=== PATIENT | male | born 1980 | race Hispanic/Latino ===

== ENCOUNTER 2017-08-26 19:34 | Emergency (ER) | payer MEDICAID ==
[2017-08-26 19:38] VITALS: BMI 34.0
[2017-08-26 19:39] VITALS: RESP 17; TEMP 98.8; O2SAT 98
[2017-08-26] MEDS ORDERED: Sodium Chloride 0.9% 1,000 ML IV STA (20:54)
--- NOTE | 2017-08-26 21:13 | ED PDOC ---
HPI: Male Pain Chief Complaint (Provider): painful urination, right abdominal pain, dark urine History Per: Patient History/Exam Limitations: no limitations Onset/Duration Of Symptoms: Days (2) Current Symptoms Are (Timing): Still Present Pain Scale Rating Of: 8 Quality Of Discomfort: "Pain" Associated Symptoms: Chills (cold sweats), Diarrhea, Loss Of Appetite, Urinary Symptoms (dysuria, dark urine). denies: Nausea, Vomiting Alleviating Factors: OTC Meds (aspirin alleviated pain a bit) Additional History Per: Patient Additional Complaint(s): 36 year old male with history of nephrolithiasis presents with 2 day history of abdominal pain. One day history of dysuria and dark urine, cold sweats. 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 Has been taking Aspirin since with some relief of pain, now w/ upper abdominal pain due to this medication. Hx of one kidney stone, passed, 2 years ago. Recently moved to [place]. No PMD. <Gabino Mcdonald - Last Filed: 08/27/17 06:53> <Janee Gardner - Last Filed: 08/28/17 15:15> Chief Complaint (Nursing): Male Genitourinary Supervising Attending Note - Supervising Attending Note The Documented history was done by the: Physician Assistant Corporate Controller, Attending Physician The documented physical exam was done by the: Physician Assistant Corporate Controller, Attending Physician - Attestation: I have personally seen and examined this patient.: Yes I have fully participated in the care of the patient.: Yes I have reviewed all pertinent clinical information, including history, physical exam and plan: Yes <Janee Gardner - Last Filed: 08/28/17 15:15> Past Medical History Vital Signs: Last Vital Signs Temp 98.8 F 08/26/17 19:38 Pulse 101 H 08/26/17 19:38 Resp 17 08/26/17 19:38 BP 142/87 08/26/17 19:38 Pulse Ox 98 08/26/17 19:38 - Medical History PMH: Kidney Stones - Surgical History Surgical History: No Surg Hx - Family History Family History: States: Unknown Family Hx <Gabino Mcdonald - Last Filed: 08/27/17 06:53> Vital Signs: Last Vital Signs Temp 98.8 F 08/26/17 19:38 Pulse 86 08/26/17 23:45 Resp 17 08/26/17 19:38 BP 136/92 H 08/26/17 23:45 Pulse Ox 98 08/27/17 06:53 <Janee Gardner - Last Filed: 08/28/17 15:15> - Home Medications Home Medications: Ambulatory Orders Medication Instructions Recorded Ciprofloxacin [Cipro] 1 tab PO BID #20 tab 08/26/17 Tamsulosin [Flomax] 0.4 mg PO DAILY #14 cap 08/26/17 traMADol [Ultram] 50 mg PO TID #15 tab 08/26/17 - Allergies Allergies/Adverse Reactions: Allergies Allergy/AdvReac Type Severity Reaction Status Date / Time ketorolac [From Toradol] Allergy RASH Verified 08/26/17 22:04 Review of Systems Constitutional: Positive for: Chills, Sweats Eyes: Negative for: Vision Change ENT: Negative for: Nose Congestion Cardiovascular: Negative for: Chest Pain, Palpitations, Light Headedness Respiratory: Negative for: Cough, Shortness of Breath Gastrointestinal: Positive for: Abdominal Pain, Diarrhea. Negative for: Nausea , Vomiting Genitourinary Male: Positive for: Dysuria, Hematuria. Negative for: Incontinence, Penile Pain Neurological: Negative for: Altered Mental Status <Gabino Mcdonald - Last Filed: 08/27/17 06:53> Physical Exam - Reviewed Vital Signs Reviewed: Yes - Physical Exam Appears: Positive for: Uncomfortable Skin: Positive for: Normal Color, Warm, Dry Eye Exam: Positive for: Normal appearance Neck: Positive for: Normal, Painless ROM Cardiovascular/Chest: Positive for: Regular Rate, Rhythm, Chest Non Tender. Negative for: Edema, Murmur Respiratory: Positive for: Normal Breath Sounds. Negative for: Wheezing, Respiratory Distress Gastrointestinal/Abdominal: Positive for: Bowel Sounds, Soft, Tenderness (mild rlq tenderness). Negative for: Distended, Guarding Back: Negative for: L CVA Tenderness, R CVA Tenderness Extremity: Positive for: Normal ROM. 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 Rule out nephrolithiasis --CBC --CMP --UA --UCx --Toradol/Tylenol --IVF --GC/CT case d/w Dr. Gardner. Labs reviewed. No Leukocytosis. + RBC in urine, +Nitrates/Leukocytes CT scan ordered. Patient still having pain, tramadol ordered. 23:30 patient requesting to go home, declined CT scan. He is hemodynamically stable at this time. <Gabino Mcdonald - Last Filed: 08/27/17 06:53> - Laboratory Results Result Diagrams: 08/26/17 21:45 08/26/17 21:45 <Janee Gardner - Last Filed: 08/28/17 15:15> Disposition - Disposition Disposition Time: 00:00 <Gabino Mcdonald - Last Filed: 08/27/17 06:53> <Janee Gardner - Last Filed: 08/28/17 15:15> - Clinical Impression Clinical Impression: Renal colic, UTI (urinary tract infection) - Disposition Referrals: Norman Perez MD [Medical Doctor] - (FOLLOW UP WITH UROLOGY NEXT WEEK) Condition: STABLE Prescriptions: Ciprofloxacin [Cipro] 1 tab PO BID #20 tab Tamsulosin [Flomax] 0.4 mg PO DAILY #14 cap traMADol [Ultram] 50 mg PO TID #15 tab Instructions: Kidney Infection, Renal Colic (DC) Forms: [facility] ED School/Work Excuse
[2017-08-26 21:58] LABS: BASO % 0.3 % (0.0-2.0); EOS # 0.1 K/uL (0.0-0.7); EOS % 1.2 % (0.0-4.0); HEMOGLOBIN 13.5 g/dL (12.0-18.0); LYMPH % 32.5 % (20.0-40.0); MEAN CELL VOLUME 80.4 fl (80.0-94.0); MEAN CORPUSCULAR HEMOGLOBIN 26.4 pg (27.0-31.0); MEAN CORPUSCULAR HGB CONC 32.8 g/dL (33.0-37.0); MEAN PLATELET VOLUME 7.6 fl (7.2-11.7); MONO # 0.9 K/uL (0.0-0.8); MONO % 14.9 % (0.0-10.0); NEUT # 3.2 K/uL (1.8-7.0); NEUT % 51.1 % (50.0-75.0); NRBC % 0.1 % (0.0-0.0); RBC 5.11 Mil/uL (4.40-5.90); RED CELL DISTRIBUTION WIDTH 13.8 % (11.5-14.5); WHITE BLOOD COUNT 6.2 K/uL (4.8-10.8)
[2017-08-26 22:14] LABS: ALB/GLOB RATIO 1.3 (1.0-2.1); ALBUMIN 4.4 g/dL (3.5-5.0); ALT/SGPT 30 U/L (21-72); AST/SGOT 30 U/L (17-59); BLOOD UREA NITROGEN 14 mg/dl (9-20); CALCIUM 9.1 mg/dL (8.4-10.2); GFR AFRICAN-AMERICAN > 60; GFR NON-AFRICAN AMERICAN > 60
[2017-08-26 22:21] LABS: SQUAMOUS EPITHIAL 11 /hpf (0-5); URINE BACTERIA OCC (<OCC); URINE BILIRUBIN NEGATIVE (NEGATIVE); URINE BLOOD LARGE (NEGATIVE); URINE CLARITY CLOUDY (Clear); URINE COLOR YELLOW (YELLOW); URINE GLUCOSE (UA) NEG (Normal); URINE LEUKOCYTE ESTERASE MOD Leu/uL (Negative); URINE PROTEIN 30 mg/dL (NEGATIVE); URINE UROBILINOGEN 0.2-1.0 mg/dL (0.2-1.0)
[2017-08-26 22:23] LABS: BARBITURATES, UR NEGATIVE (NEGATIVE); BENZODIAZEPINES, UR NEGATIVE (NEGATIVE); OPIATES, UR NEGATIVE (NEGATIVE); PHENCYCLIDINE, UR NEGATIVE (NEGATIVE)
[2017-08-26] MEDS ORDERED: cefTRIAXone (Rocephin) 1 gm Inj ONE (22:44)
[2017-08-26 23:45] VITALS: BP 136/92; PULSE 86
== END 2017-08-26 23:45 | disposition home or self-care (01) ==
LOC: H.ER 19:34
DX: N39.0 Urinary tract infection, site not specified (principal); N23 Unspecified renal colic; Z87.442 Personal history of urinary calculi
CPT/HCPCS: 80053; 80324; 80345; 80346; 80349; 80353; 80358; 80361; 81003; 83992; 85025; 87086; 96361; 96365; 99283; J0696; J7030